=== PATIENT | female | born 1990 | race Caucasian/White ===

== ENCOUNTER → 2017-08-22 | Outpatient (CLI) | payer OTHER ==
--- NOTE | 2017-08-22 13:02 | DIAGNOSTIC IMAGING REPORT ---
PELVIC COMPLETE NON OB HISTORY: 27 years-old Female IRREGULAR MENSES COMPARISON: Pelvic ultrasound 03/21/2007 TECHNIQUE: Multiple real-time sonographic images of the deep pelvic structures were obtained transabdominally and transvaginally assessing grayscale appearance, color and spectral flow FINDINGS: TRANSABDOMINAL: Anteflexed uterus measures 6.3 x 3.2 x 3.9 cm. Endometrium is homogeneous, 0.6 cm. No adnexal mass lesions identified. TRANSVAGINAL: No myometrial mass lesions identified. Endometrium measures 0.4 cm. The left ovary measures 3.9 x 1.5 x 2.0 cm and is within normal limits without focal mass. Arterial inflow is documented within the left ovary. Right ovary is also within normal limits, 3.8 x 1.6 x 1.7 cm demonstrates no focal mass. Arterial inflow documented. No significant free pelvic fluid. IMPRESSION: 1. Unremarkable sonographic appearance of the uterus, endometrium and bilateral ovaries. 2. No evidence of ovarian torsion. The above report was generated using voice recognition software. It may contain grammatical, syntax or spelling errors. Electronically signed by: Tito Saleh M.D. 08/22/2017 1:00 PM Dictated Date/Time: 08/22/2017 12:58 PM
== END | disposition home or self-care (01) ==
LOC: C.ULTR 12:09
PROVIDERS: ATTEND Nurse Practitioner Family
DX: N92.6 Irregular menstruation, unspecified (principal)

== ENCOUNTER 2021-01-08 10:45 | Inpatient (IN) ==
[2021-01-08] MEDS ORDERED: LACTATED RINGER'S 1,000 ML IV PRN (11:11)
[2021-01-08] MEDS ORDERED: OXYTOCIN 30 UNITS/500 ML BAG IV PRN (11:11)
[2021-01-08 11:32] LABS: Hematocrit (blood only) 37.3 % (37-47); Hemoglobin 12.8 g/dL (12.0-16.0); Mean Corpuscular Hemoglobin 31.5 pg (25-34); Mean Corpuscular Hgb Conc 34.3 g/dL (32-36); Mean Corpuscular Volume 91.9 fL (80-100); Platelet Count 206 K/uL (130-400); RDW Coefficient of Variation 12.6 % (11.5-14.5); RDW Standard Deviation 42.4 fL (36.4-46.3); Red Blood Count 4.06 M/uL (4.2-5.4); White Blood Count 14.75 K/uL (4.8-10.8)
--- NOTE | 2021-01-08 12:56 | History and Physical Report ---
DATE OF ADMISSION: 01/08/2021 CHIEF COMPLAINT: Active labor, breech presentation. HISTORY OF PRESENT ILLNESS: The patient is a 30-year-old 1, para 0, due date 01/30/2021, has been in labor for about 24 hours. I came and examined the patient, she was about 9 cm. Membranes were intact. By exam, she was a breech presentation. I did a bedside ultrasound, confirmed the breech presentation and she is being scheduled for an urgent section. PAST SURGICAL HISTORY: She had wisdom teeth removed. ALLERGIES: No known drug allergies. PAST MEDICAL HISTORY: No medical diseases. SOCIAL HISTORY: No smoking, no alcohol intake. She works as a HR. FAMILY HISTORY: Mom is 59, in good health. Father 51, in good health. One sister in good health. REVIEW OF SYSTEMS: She does have a history of migraine headaches. PHYSICAL EXAMINATION: GENERAL: Well-developed, well-nourished 30-year-old white female, alert, oriented x3 and cooperative, in no acute distress, appeared her stated age. EYES: Conjunctivae are pink. Sclerae white, no evidence of jaundice. EARS: Had normal light reflex bilaterally. NOSE: Had normal mucosa. Septum is midline. There were no polyps. THROAT: No erythema or evidence of infection. Teeth are in good state of repair. HEAD: Normocephalic, normal distribution of hair. NECK: Supple. Trachea midline. Thyroid is not enlarged. There is no adenopathy appreciated. Both carotids are of good intensity. CHEST: Clear to auscultation and percussion. ABDOMEN: Term size fetus, head palpable in the upper left quadrant. MUSCULOSKELETAL: No calf tenderness. VAGINAL: Cervix 9 cm, membranes intact. Corbin breech presentation. IMPRESSIONS OF THIS CASE: Status post wisdom teeth removal. Corbin breech presentation, active labor.
[2021-01-08] MEDS ORDERED: CITRIC ACID/SODIUM CITRATE 15 ML UDC PO ONE (13:01)
[2021-01-08] MEDS ORDERED: CITRIC ACID/SODIUM CITRATE 15 ML UDC ONE (13:01)
[2021-01-08] MEDS ORDERED: cefOXitin 2,000 MG in DEXTROSE 5% 50 ML IV ONE (13:05)
--- NOTE | 2021-01-08 13:08 | Anesthesiology Consultation ---
Date of Service January 08, 2021 Breech in labor. Assessment & Plan Chart Review Chart Review: Acceptable Risk for Surgery and Patient NOT seen in Pre Admission Testing Consults Requested none ASA [id number] Proposed Anesthesia Anesthesia Type: MAC Spinal Risk / Benefits Reviewed With: PT / POA / Parent / Guardian, Accepts Plan and Informed Consent Obtained History Height/Weight Height: 5 ft 7 in Weight: 68.946 kg Allergies Allergy/AdvReac Type Severity Reaction Status Date / Time peach Allergy Swelling Verified 01/08/21 10:58 of Lip/Tongue/Throat Medications Home Medications Medication Instructions Recorded Confirmed Last Taken [id number] 1 tab PO DAILY 01/08/21 01/08/21 01/07/21 20:00 [] NPO Date Last Intake of Fluids: 01/08/21 Time Last Intake of Fluids: 08:00 Date Last Intake of Solids: 01/07/21 Time Last Intake of Solids: 20:00 Past Medical History Medical History No known health problems Exercise / Class Metabolic Activity II 4-5 Yardwork/Stairs/Walk up hill Past Family History Family History Other No history of previous surgery No known health problems Past Surgical History Surgical History [place] teeth removed 2009 Past Anesthesia History No Hx of Anesthesia Complications and No Family Hx of Anesthesia Complications History of PONV No Hx of PONV and No Hx of Motion Sickness Social History Smoking Status: Never smoker Do You Dip or Chew Tobacco: No Hx Alcohol Use: No Hx Substance Use: No Review of Systems no chest pain or sob Physical Exam Vital Signs Last Vital Signs Temp 36.5 C 01/08/21 11:46 Pulse 88 01/08/21 11:04 Resp 20 01/08/21 11:46 BP 116/72 01/08/21 11:04 SpO2 99 ENMT Mouth: no TMJ abnormality Thyromental Distance: > or= 3.5 Finger Breadths Mallampati Class: II Neck normal visual inspection Respiratory normal respiratory effort Auscultation: lungs clear to auscultation bilaterally Cardiovascular Rate/Rhythm: regular rate and regular rhythm Musculoskeletal Spine: normal cervical ROM Neurologic moves all extremities Psychiatric Orientation: alert and oriented x 3 Testing Laboratory Results 01/08/21 11:24
[2021-01-08] MEDS ORDERED: fentaNYL citrate 100 MCG/2 ML VIAL ONE (13:11)
[2021-01-08] MEDS ORDERED: MoRPHine SULFATE PF 1 MG/ML 10 ML AMP/VIAL ONE (13:11)
[2021-01-08] MEDS ORDERED: OXYTOCIN 10 UNITS/ML VIAL ONE ×2 (13:30→13:32)
[2021-01-08] MEDS ORDERED: PHENYLEPHRINE 100MCG/ML 5ML SYR ONE (13:30)
[2021-01-08] MEDS ORDERED: NALOXONE HCL 1 MG in SODIUM CHLORIDE 0.9% 1000ML 1,000 ML IV PRN (13:33)
[2021-01-08] MEDS ORDERED: MoRPHine SULFATE PF 1 MG/ML 10 ML AMP/VIAL INT SPINAL ONE (13:33)
[2021-01-08] MEDS ORDERED: ePHEDrine sulfate 50 MG/ML AMP IV PRN (13:33)
[2021-01-08] MEDS ORDERED: diphenhydrAMINE 50 MG/ML VIAL IV PRN (13:33)
[2021-01-08] MEDS ORDERED: LACTATED RINGER'S 500 ML IV PRN (13:33)
[2021-01-08] MEDS ORDERED: HYDROmorphone INJ 0.5 MG/0.5 ML SYR IV PRN (13:33)
[2021-01-08] MEDS ORDERED: ONDANSETRON INJ 2 MG/ML 2 ML VIAL IV PRN (13:33)
[2021-01-08] MEDS ORDERED: NALOXONE HCL 0.08 MG in SYRINGE 1.8 ML IV PRN (13:33)
[2021-01-08] MEDS ORDERED: KETOROLAC 30 MG/ML VIAL IV PRN (13:33)
[2021-01-08] MEDS ORDERED: NALOXONE HCL 0.4 MG/1 ML VIAL/CARP IV PRN (13:33)
[2021-01-08] MEDS ORDERED: SODIUM CHLORIDE 0.9% 1000ML 1,000 ML IV SCH (13:45)
[2021-01-08] MEDS ORDERED: DC INTRASPINAL MORPHINE SCH (13:45)
[2021-01-08] MEDS ORDERED: NO NARCOTICS OR SEDATIVES SCH (13:45)
[2021-01-08] MEDS ORDERED: MAGNESIUM HYDROXIDE SUSP 30 ML UDC PO PRN (14:10)
[2021-01-08] MEDS ORDERED: SENNA 8.6 MG TAB PO PRN (14:10)
[2021-01-08] MEDS ORDERED: SUPERCREAM 0.870% 15 GM JAR EXT PRN (14:10)
[2021-01-08] MEDS ORDERED: BENZOCAINE 20% AER SPR 82.5 GM CAN EXT PRN (14:10)
[2021-01-08] MEDS ORDERED: DIPHTHERIA/TETANUS/PERTUSSIS 0.5 ML SYR/VIAL IM ONE (14:10)
[2021-01-08] MEDS ORDERED: HYDROCORTISONE ACETATE 25 MG SUPP PR PRN (14:10)
--- NOTE | 2021-01-08 14:10 | Post Operative Brief Note ---
Immediate Post Op Note v1 Date of Surgery January 08, 2021 Pre & Post Diagnosis Operation Date: 01/08/21 13:00 Pre-Op Diagnosis: Breech presentation; Active labor Post-Op Diagnosis: Same; delivery of a live male child at 1330( main OR 3) I identified the patient and participated in the time-out.: Yes Procedure Operation Date: 01/08/21 13:00 Actual Procedures p Section in LD(Bilateral) - Bharathi Boyce MD Surgeon Bharathi Boyce MD Roll Shop Supervisor Dr Sierra Estimated Blood Loss 500 Findings Consistent with Post-Op Diagnosis mariana breech Specimens placenta Drains Mulligan Catheter Anesthesia Type Spinal Disposition Accompanied Patient To Recovery: No Disposition: Recovery Room
[2021-01-08] MEDS ORDERED: LACTATED RINGER'S 1,000 ML IV SCH (14:15)
--- NOTE | 2021-01-08 14:32 | Operative Report (OR) ---
DATE OF OPERATION: 01/08/2021 PROCEDURE: Primary low segment section. INDICATIONS FOR SURGERY: Active labor, mariana breech presentation. PREOPERATIVE DIAGNOSIS: Mariana breech presentation. POSTOPERATIVE DIAGNOSIS: Delivered live male infant. SURGEON: Barney Boyce MD. MACHINE FASTENER: Kimani Lynn MD. ESTIMATED BLOOD LOSS: 500 mL. ANESTHESIA: Spinal. OPERATIVE FINDINGS AND PROCEDURE: The patient was brought to the OR table, correctly identified by armband and conversation. Spinal anesthesia was administered. She was then prepped in usual fashion. Compression stockings were applied. A Mulligan catheter was inserted aseptically in the bladder. Lower abdomen was painted with an alcohol based sterilizing solution, allowed to dry for 3 minutes. She was then draped in the usual sterile fashion. A Pfannenstiel incision was made, carried down to the anterior fascia by sharp dissection. Hemostasis was secured by electrocauterization. Fascia was incised transversely, from the underlying muscle by blunt and sharp dissection. Recti muscles were in the midline, exposing peritoneum, which was carefully raised and entered. An incision was made above the vesicouterine fold. Bladder was undermined bluntly and pushed out of the operative field. Lower uterine segment was scored and then entered. Clear amnionic fluid could be seen at this time. Jig Grinder Set Up Operator's hand was inserted into the uterus and a mariana breech presentation was delivered. First the hips were delivered, then each arm was reduced and then the head was delivered without difficulty. Infant breathed and cried spontaneously, was attended to by the stack supervisor who was scrubbed and present at the time of delivery. Cord was clamped and cut. Cord blood was taken. With IV Pitocin running, the placenta was removed intact. Uterus was brought out through the incision. The myometrium was approximated with continuous heavy chromic gut suture. Then a fascial layer was approximated over this with a separate heavy Vicryl and then about 3 [id number] sutures of heavy Vicryl were used to complete hemostasis and complete the approximation of the fascial layer. When it was done, we had a good strong anatomical approximation. The peritoneal edges were then approximated with continuous 3-0 chromic. The pelvis was cleansed of all blood clots and debris. Uterus, tubes, and ovaries were inspected and found to be normal. They were reinserted into the abdominal cavity. Careful anatomical approximation of the anterior abdominal wall was performed. Peritoneum was closed with a mattress suture of chromic catgut. Recti muscles were approximated with interrupted [id number] suture of chromic catgut. The fascia was closed with continuous interlocking suture of Vicryl on each side, tied in the midline. SubQ was approximated with a running plain and skin edge was approximated with staple clips. I attest to the content of the Intraoperative Record and any orders documented therein. Any exception s are noted below.
[2021-01-08] MEDS: OXYTOCIN 20 UNITS in LACTATED RINGER'S 1,000 ML IV SCH ×2 (15:19→23:39)
--- NOTE | 2021-01-08 15:38 | Anesthesiology Progress Note ---
Date of Service January 08, 2021 Anesthesia Post Procedure Vital Signs Vital Signs: Temp Pulse Resp BP Pulse Ox 01/08/21 15:32 64 98 01/08/21 15:27 65 110/62 98 01/08/21 15:22 36.5 C 64 20 110/62 98 01/08/21 15:17 70 109/64 98 01/08/21 15:12 62 20 97 01/08/21 15:07 76 110/65 97 01/08/21 15:02 62 20 97 01/08/21 14:57 69 119/67 96 01/08/21 14:52 73 20 97 01/08/21 14:48 73 91 01/08/21 14:47 77 119/65 100 01/08/21 14:42 73 20 99 01/08/21 14:37 84 98 01/08/21 14:32 79 20 100 01/08/21 14:27 73 100 01/08/21 14:23 75 104/56 L 01/08/21 14:22 36.5 C 75 20 104/56 L 98 01/08/21 11:46 36.5 C 20 01/08/21 11:04 36.5 C 88 20 116/72 Transfer of Care Handoff Completed per policy Notes Mental Status: alert / awake / arousable Patient Amnestic to Procedure: Yes Nausea / Vomiting: adequately controlled Pain: adequately controlled Airway Patency, RR, SpO2: stable & adequate BP & HR: stable & adequate Hydration State: stable & adequate Neuraxial Anesthesia: was administered and sensory block is resolving Anesthetic Complications: no major complications apparent and Pt Satisfied with anesthetic care
[2021-01-08] MEDS: SIMETHICONE 80 MG CHEW PO SCH ×2 (17:49→21:10)
[2021-01-08] MEDS: DOCUSATE SODIUM 100 MG CAP PO SCH (21:10)
[2021-01-09 07:13] LABS: Basophils # (auto) 0.01 K/uL (0-0.2); Basophils % (auto) 0.1 %; Eosinophils # (auto) 0.06 K/uL (0-0.5); Eosinophils % (auto) 0.4 %; Hematocrit (blood only) 35.6 % (37-47); Hemoglobin 12.2 g/dL (12.0-16.0); Immature Granulocytes # (auto) 0.03 K/uL (0.00-0.02); Immature Granulocytes % (auto) 0.2 %; Lymphocytes # (auto) 2.01 K/uL (1.2-3.4); Lymphocytes % (auto) 14.3 %; Mean Corpuscular Hemoglobin 32.1 pg (25-34); Mean Corpuscular Hgb Conc 34.3 g/dL (32-36); Mean Corpuscular Volume 93.7 fL (80-100); Mean Platelet Volume 10.2 fL (7.4-10.4); Monocytes # (auto) 1.28 K/uL (0.11-0.59); Monocytes % (auto) 9.1 %; Neutrophils # (auto) 10.71 K/uL (1.4-6.5); Neutrophils % (auto) 75.9 %; Platelet Count 214 K/uL (130-400); RDW Coefficient of Variation 12.7 % (11.5-14.5); RDW Standard Deviation 44.1 fL (36.4-46.3)
[2021-01-09] MEDS ORDERED: ZOLPIDEM TARTRATE 5 MG TAB PO PRN (07:34)
[2021-01-09] MEDS ORDERED: PROMETHAZINE HCL 25 MG in SODIUM CHLORIDE 0.9% 50 ML IV PRN (07:34)
[2021-01-09] MEDS ORDERED: diphenhydrAMINE 50 MG/ML VIAL IV PRN (07:34)
[2021-01-09] MEDS ORDERED: MEPERIDINE HCL 50 MG/ML CARP IV PRN (07:34)
[2021-01-09] MEDS ORDERED: diphenhydrAMINE Capsule 25 MG CAP PO PRN (07:34)
[2021-01-09] MEDS ORDERED: KETOROLAC 30 MG/ML VIAL IV PRN (07:34)
[2021-01-09] MEDS ORDERED: ONDANSETRON INJ 2 MG/ML 2 ML VIAL IV PRN (07:34)
--- NOTE | 2021-01-09 08:38 | Obstetrical Progress Note ---
Date of Service January 09, 2021 Assessment & Plan Admission and Anticipated Discharge Date Admission Date: January 08, 2021 Physical Exam Physical Exam: abdomen soft and non tender bowel sounds present normal no calf tenderness bandage removed incision is clean and dry vaginal bleeding scant hgb 12.2 Results & Data ([facility]) Vital Signs (Past 12 Hours) Vital Signs Temp Pulse Resp BP Pulse Ox 01/09/21 06:00 16 97 01/09/21 05:00 16 97 01/09/21 04:00 16 97 01/09/21 03:20 36.8 C 87 16 114/74 97 01/09/21 03:00 16 97 01/09/21 02:00 16 98 01/09/21 01:00 16 97 01/09/21 00:00 17 96 01/08/21 23:15 36.8 C 81 17 114/69 98 01/08/21 23:00 16 98 01/08/21 22:00 16 98 01/08/21 21:00 17 98
[2021-01-09] MEDS: SIMETHICONE 80 MG CHEW PO SCH ×4 (08:59→20:27)
[2021-01-09] MEDS: DOCUSATE SODIUM 100 MG CAP PO SCH ×2 (09:00→20:27)
[2021-01-09] MEDS: IBUPROFEN 600 MG TAB PO PRN ×3 (09:00→20:27)
[2021-01-09] MEDS: FERROUS SULFATE 325 MG TAB PO SCH (09:00)
[2021-01-09] MEDS: oxyCODONE/ACETAMINOPHEN 5mg/325mg TAB PO PRN ×3 (09:00→20:27)
[2021-01-09] MEDS: PRENATAL VITAMIN 1 TAB PO SCH (09:00)
--- NOTE | 2021-01-09 14:17 | Anesthesiology Progress Note ---
Date of Service January 09, 2021 Anesthesia Post Procedure Vital Signs Vital Signs: Temp Pulse Pulse Resp BP BP Pulse Ox 01/09/21 12:25 36.5 C 70 18 91/54 L 97 01/09/21 07:30 37 C 84 18 112/72 98 01/09/21 07:00 18 98 01/09/21 06:00 16 97 01/09/21 05:00 16 97 01/09/21 04:00 16 97 01/09/21 03:20 36.8 C 87 16 114/74 97 01/09/21 03:00 16 97 01/09/21 02:00 16 98 01/09/21 01:00 16 97 01/09/21 00:00 17 96 01/08/21 23:15 36.8 C 81 17 114/69 98 01/08/21 23:00 16 98 01/08/21 22:00 16 98 01/08/21 21:00 17 98 01/08/21 20:00 36.9 C 74 16 118/68 99 01/08/21 19:00 18 96 01/08/21 18:20 36.5 C 60 16 109/69 99 01/08/21 17:40 16 99 01/08/21 16:55 55 L 111/73 01/08/21 16:40 16 100 01/08/21 16:37 63 134/63 01/08/21 16:34 35.9 C L 63 18 135/63 100 01/08/21 16:27 63 100 01/08/21 16:22 63 20 100 01/08/21 16:17 76 129/82 100 01/08/21 16:12 67 100 01/08/21 16:07 75 117/72 99 01/08/21 16:02 82 100 01/08/21 16:01 73 124/67 01/08/21 15:57 83 99 01/08/21 15:52 76 20 100 01/08/21 15:48 70 150/76 H 01/08/21 15:47 75 99 01/08/21 15:42 77 99 01/08/21 15:38 74 107/59 L 01/08/21 15:37 68 99 01/08/21 15:32 64 98 01/08/21 15:27 65 110/62 98 01/08/21 15:22 36.5 C 64 20 110/62 98 01/08/21 15:17 70 109/64 98 01/08/21 15:12 62 20 97 01/08/21 15:07 76 110/65 97 01/08/21 15:02 62 20 97 01/08/21 14:57 69 119/67 96 01/08/21 14:52 73 20 97 01/08/21 14:48 73 91 01/08/21 14:47 77 119/65 100 01/08/21 14:42 73 20 99 01/08/21 14:37 84 98 01/08/21 14:32 79 20 100 01/08/21 14:27 73 100 01/08/21 14:23 75 104/56 L 01/08/21 14:22 36.5 C 75 20 104/56 L 98 Pain Intensity Bilateral Abdomen: Pain Intensity: 2 Transfer of Care Handoff Completed per policy Notes Mental Status: alert / awake / arousable Patient Amnestic to Procedure: Yes Nausea / Vomiting: adequately controlled Pain: adequately controlled Airway Patency, RR, SpO2: stable & adequate BP & HR: stable & adequate Hydration State: stable & adequate Neuraxial Anesthesia: was administered and sensory block resolved Anesthetic Complications: no major complications apparent and Pt Satisfied with anesthetic care
[2021-01-09] MEDS ORDERED: bisacodyL 5 MG TABEC PO SCH (20:00)
[2021-01-10] MEDS: oxyCODONE/ACETAMINOPHEN 5mg/325mg TAB PO PRN ×2 (02:45→10:35)
[2021-01-10] MEDS: IBUPROFEN 600 MG TAB PO PRN ×2 (02:45→10:35)
[2021-01-10 06:25] LABS: Hematocrit (blood only) 36.6 % (37-47); Hemoglobin 12.2 g/dL (12.0-16.0)
[2021-01-10] MEDS: DOCUSATE SODIUM 100 MG CAP PO SCH (08:27)
[2021-01-10] MEDS: FERROUS SULFATE 325 MG TAB PO SCH (08:27)
[2021-01-10] MEDS: PRENATAL VITAMIN 1 TAB PO SCH (08:27)
[2021-01-10] MEDS: SIMETHICONE 80 MG CHEW PO SCH ×2 (08:27→13:11)
--- NOTE | 2021-01-10 10:31 | Obstetrical Progress Note ---
Date of Service January 10, 2021 Assessment & Plan Admission and Anticipated Discharge Date Admission Date: January 08, 2021 Physical Exam Physical Exam: abdomen soft and non tender incision is clean and dry no calf tenderness ambulating well vaginal bleeding scant hgb 12.2 Results & Data ([facility]) Vital Signs (Past 12 Hours) Vital Signs Temp Pulse Resp BP Pulse Ox 01/10/21 08:30 36.9 C 73 20 112/74 99 01/10/21 00:10 36.8 C 68 16 112/73
--- NOTE | 2021-01-10 11:18 | Discharge Summary (DS) ---
A 30-year-old white female who was followed in our office for care and delivery. Went into spontaneous labor at 36 weeks 6 days, eventually came to the maternity. When I checked her, she was a mariana breech presentation, membranes intact. Cervix about 9 cm dilated. We then did an emergency primary low segment section, delivered live male infant. Blood loss was minimal. She received prophylactic antibiotics prior to the surgery consisting of Mefoxin 2 grams. Postoperatively, she did excellent. Bowel sounds returned within 24 hours. She was passing gas. At the time of discharge, she was ambulating well, eating well. She actually requested discharge. Her preoperative hemoglobin was 12.8. Postoperatively, hemoglobin fell to 12.2. She was given prescriptions for Percocet and Motrin for pain control and told to call the office should she have temperature over 100 or any heavy bleeding, to return to the office for removal of zayda.
[2021-01-10] MEDS ORDERED: bisacodyL 10 MG SUPP PR PRN (14:10)
== END 2021-01-10 15:15 | disposition home or self-care (01) | DRG 786 ==
LOC: OPB 10:45 → 4S2 10:45